=== PATIENT | male | born 1985 | race Two or more races ===

== ENCOUNTER 2022-11-15 23:34 | Emergency (ER) | payer MEDICAID, OTHER ==
[~2022-11-15] VITALS: Ht 177.8 cm; Wt 74.8 kg
[2022-11-16] MEDS ORDERED: LORAZEPAM 1 MG TABLET PO ONE
[2022-11-16] MEDS ORDERED: LORAZEPAM 1 MG TABLET ONE (00:05)
--- NOTE | 2022-11-16 01:39 | NUR ---
Patient discharged to home in stable condition. Written and verbal after care instructions given. Patient verbalizes understanding of instruction.
[2022-11-16 01:50] VITALS: BP 135/89
== END 2022-11-16 01:50 | disposition home or self-care (01) ==
LOC: ER 23:42
DX: F15.129 Other stimulant abuse with intoxication, unspecified (principal); I10 Essential (primary) hypertension

== ENCOUNTER 2022-11-16 04:50 | Emergency (ER) | payer OTHER ==
[~2022-11-16] VITALS: Ht 177.8 cm; Wt 74.8 kg
[2022-11-16 04:54] VITALS: BP 172/86
[2022-11-16 05:30] LABS: BASOPHILS % (AUTO) 0.2 % (0.0-2.0); EOSINOPHILS % (AUTO) 0.1 % (0.0-6.0); HEMATOCRIT 46 % (39-51); HEMOGLOBIN 15.6 g/dL (13.5-17.5); LYMPHOCYTES # (AUTO) 1.6 K/uL (0.8-4.8); MEAN CORPUSCULAR HGB CONC 34 g/dl (31.0-36.0); MEAN CORPUSCULAR VOLUME 89 fL (80-96); MONOCYTES # (AUTO) 1.2 K/uL (0.1-1.30); MONOCYTES % (AUTO) 15.1 % (2.0-12.0); NEUTROPHILS # (AUTO) 5.3 K/uL (1.8-8.9); NEUTROPHILS % (AUTO) 64.6 % (43.0-81.0); PLATELET COUNT (AUTO) 297 K/uL (150-450); RED BLOOD CELL COUNT(AUTO) 5.19 MIL/uL (4.5-6.0); WHITE BLOOD COUNT (AUTO) 8.1 K/uL (4.3-11.0)
[2022-11-16 05:51] LABS: CALCIUM, SERUM 9.8 mg/dL (8.5-10.1); CREATININE 1.2 mg/dL (0.6-1.3); MAGNESIUM 2.1 mg/dL (1.8-2.4); POTASSIUM 3.3 mmol/L (3.5-5.1)
== END 2022-11-16 06:52 | disposition home or self-care (01) ==
LOC: ER 04:57
DX: R42 Dizziness and giddiness (principal); I10 Essential (primary) hypertension; F15.129 Other stimulant abuse with intoxication, unspecified
CPT/HCPCS: 36415; 80048-TC; 83735-TC; 85025-TC

== ENCOUNTER 2023-01-06 03:46 | Emergency (ER) | payer OTHER ==
[~2023-01-06] VITALS: Ht 188 cm; Wt 92.5 kg
[2023-01-06] MEDS ORDERED: LORAZEPAM 1 MG TABLET PO ONE (04:00)
--- NOTE | 2023-01-06 04:00 | NUR ---
BIBRA 62 FOR C/O HEARING VOICES. DENIED SI/HI. ADMITTED ON USING METH. PATIENT IS AAOX4. ABLE TO MAKE NEEDS KNOWN. COOPERATIVE. PLACED COMFORTABLY IN BED. VITALS CHECKED.
--- NOTE | 2023-01-06 04:10 | NUR ---
CHANGED INTO [facility]OSPITAL GOWN
[2023-01-06] MEDS ORDERED: LORAZEPAM 1 MG TABLET ONE (04:17)
--- NOTE | 2023-01-06 07:15 | NUR ---
REPORT GIVEN TO YOSEPH GRIJALVA
--- NOTE | 2023-01-06 13:00 | NUR ---
Patient discharged to home in stable condition. Written and verbal after care instructions given. Patient verbalizes understanding of instruction.
[2023-01-06 16:06] VITALS: BP 134/81
== END 2023-01-06 16:06 | disposition home or self-care (01) ==
LOC: ER 03:47
DX: F15.929 Other stimulant use, unspecified with intoxication, unspecified (principal); F41.9 Anxiety disorder, unspecified; I10 Essential (primary) hypertension; Z59.00 Homelessness unspecified